=== PATIENT | female | born 1990 | race Caucasian/White ===

== ENCOUNTER 2023-07-12 09:27 | Outpatient (AMB) | payer OTHER, SELFPAY ==
--- NOTE | 2023-07-12 10:02 | AM.OFFWIN_ITS ---
Intake Vital Signs 07/12/23 10:03 Height 5 ft 8 in BP 108/62 Blood Pressure Location Rt brachial Position Sitting Pulse 93 Pulse Source Pulse Oximeter Temp 98.2 F Temp Source Oral Pulse Oximetry (%) 98 Oxygen Delivery Method Room Air Intake Visit Reasons: [employer] COVID+ 07/08/ Sore throat [phone] Intake Note: pt is here for c/o sore throat, covid positive on 07/08/23 Patient Tobacco Use Status: Never used Tobacco Allergies sulfacetamide [From Sulfacet-R] Allergy (Mild, Verified 07/12/23 10:03) Hives sulfur [From Sulfacet-R] Allergy (Mild, Verified 07/12/23 10:03) Hives Do you need a note to return to daycare/school/sports/work: No HPI HPI Comments History of Present Illness Details Patient presents with cold symptoms Friday onset ST and said sneezing on Friday Tested + Friday States was negative covid yesterday and today She had congestion ST, sneezing No cough associated + ST that has been persistent She said worse with swallowing but fine otherwise She has not taken anyting but paxlovid. ON LICENSE OF [facility] Social History Patient Tobacco Use Status: Never used Tobacco Review of Systems Const Denies body aches, Denies chills and Denies fever(s) ENT Denies otalgia, Reports nasal discharge and Reports sore throat Card Denies chest pain and Denies dyspnea Resp Denies cough and Denies dyspnea Physical Exam Vital Signs: Last Vital Signs Temp 98.2 F 07/12/23 10:03 Pulse 93 07/12/23 10:03 BP 108/62 07/12/23 10:03 Pulse Ox 98 07/12/23 10:03 Oxygen Delivery Method Room Air 07/12/23 10:03 General: Non-toxic, NAD. Speaking full sentences. Skin: Warm dry throughout Eye: EOMI HENT: Airway patent. Uvula midline. No pharyngeal erythema or edema. No MANAGER TALENT MANAGEMENT. Bilateral canals clear. TM non-erythematous, non-bulging. No TM perforation or hemotympanum noted. Respiratory: CTA bilaterally. No wheezes, rales or rhonchi Cardiac: RRR. No murmur MSK: Full ROM extremities. Neurology: A/O. No aphasia or facial droop. Gait without abnormality Psych: Good mood and affect Assessment & Plan Assessment & Plan (1) COVID: Code(s): U07.1 - COVID-19 Plan: see below (2) Pharyngitis: Code(s): J02.9 - Acute pharyngitis, unspecified Qualifiers: Pharyngitis/tonsillitis etiology: unspecified etiology Qualified Code(s): J02.9 - Acute pharyngitis, unspecified Plan: Patient seen and evaluated. Strep negative covid negative per pt but she has one more pill of Paxlovid We discussed covid rebound with paxlovid and she will monitor and retest if symptoms return Fluids/Motrin F/U with PCP. ER with concerns Patient gave verbal understanding and had no additional questions or concerns at time of discharge All questions answered Coding Level of Care Code New Pt Level 3 (03021) Diagnoses COVID U07.1 Pharyngitis, unspecified etiology J02.9 Pharyngitis/tonsillitis etiology: unspecified etiology
[2023-07-12 10:03] VITALS: BP 108/62; PULSE 93; TEMP 36.8; O2SAT 98
== END 2023-07-12 10:33 | disposition home or self-care (01) ==
PROVIDERS: Visit Provider Physician Assistant
DX: U07.1 COVID-19 (principal); J02.9 Acute pharyngitis, unspecified
CPT/HCPCS: 87880; 99051; 99203

== ENCOUNTER 2023-07-12 10:33 | Outpatient (REF) | payer OTHER, SELFPAY | END 2023-07-12 10:34 | disposition home or self-care (01) | LOC: HO.LAB 10:33 | PROVIDERS: Visit Provider Physician Assistant | DX: Z13.89 Encounter for screening for other disorder (principal) ==